=== PATIENT | male | born 1950 | race Caucasian/White ===

== ENCOUNTER 2023-05-20 13:55 | Emergency (ER) | payer MEDICARE, OTHER ==
[~2023-05-20] VITALS: Ht 185.4 cm; Wt 136.1 kg
[2023-05-20 13:55] VITALS: BP 138/65; PULSE 72; RESP 18; TEMP 97.9; O2SAT 91
[2023-05-20 14:25] VITALS: BP 139/68; PULSE 67; RESP 18; TEMP 97.9; O2SAT 91
[2023-05-20 14:55] VITALS: BP 135/65; PULSE 66; RESP 18; TEMP 97.9; O2SAT 91
[2023-05-20 15:20] VITALS: BP_SYST 127; RESP 18
[2023-05-20 15:25] VITALS: BP 127/62; PULSE 66; RESP 18; TEMP 97.9; O2SAT 94
[2023-05-20 15:36] VITALS: BP 136/72; PULSE 66; RESP 18; TEMP 97.9; O2SAT 94
== END 2023-05-20 15:36 | disposition short-term general hospital (02) ==
LOC: ER 13:55
DX: S27.1XXA Traumatic hemothorax, initial encounter (principal); S22.42XA Multiple fractures of ribs, left side, initial encounter for closed fracture; R09.02 Hypoxemia; E78.00 Pure hypercholesterolemia, unspecified; Z95.1 Presence of aortocoronary bypass graft; W19.XXXA Unspecified fall, initial encounter; Y93.89 Activity, other specified; Y92.89 Other specified places as the place of occurrence of the external cause; Y99.8 Other external cause status
CPT/HCPCS: 71250; 72125; 72128; 99291